=== PATIENT | female | born 1980 | race Caucasian/White ===

== ENCOUNTER 2021-02-12 18:05 | Emergency (ER) | payer OTHER ==
[~2021-02-12] VITALS: Wt 78.5 kg
[2021-02-12] MEDS ORDERED: SEPTDS PO (19:05)
== END 2021-02-12 19:20 | disposition home or self-care (01) ==
LOC: ED 18:05
DX: L02.01 Cutaneous abscess of face (principal); F17.200 Nicotine dependence, unspecified, uncomplicated; Z88.8 Allergy status to other drugs, medicaments and biological substances; Z88.5 Allergy status to narcotic agent; Z90.49 Acquired absence of other specified parts of digestive tract; Z90.711 Acquired absence of uterus with remaining cervical stump

== ENCOUNTER 2021-02-14 12:01 | Emergency (ER) | payer OTHER ==
[~2021-02-14] VITALS: Wt 78.5 kg
[~2021-02-14 12:01] MED LIST: SEPTDS PO
== END 2021-02-14 13:22 | disposition home or self-care (01) ==
LOC: ED 12:01
DX: L72.3 Sebaceous cyst (principal); Z88.5 Allergy status to narcotic agent; Z88.8 Allergy status to other drugs, medicaments and biological substances; Z79.899 Other long term (current) drug therapy; Z90.711 Acquired absence of uterus with remaining cervical stump; Z90.49 Acquired absence of other specified parts of digestive tract

== ENCOUNTER 2021-07-13 15:42 | Emergency (ER) | payer OTHER ==
[~2021-07-13] VITALS: Ht 165.1 cm; Wt 79.4 kg
[2021-07-13] MEDS ORDERED: PROVENTIL HFA6.7 GM INH (18:58)
[2021-07-13] MEDS ORDERED: PREDNISONE20 M1 PO (18:58)
== END 2021-07-13 22:04 | disposition home or self-care (01) ==
LOC: ED 15:42
DX: U07.1 COVID-19 (principal); Z88.6 Allergy status to analgesic agent; Z88.1 Allergy status to other antibiotic agents; Z79.2 Long term (current) use of antibiotics; Z90.711 Acquired absence of uterus with remaining cervical stump; Z90.49 Acquired absence of other specified parts of digestive tract